=== PATIENT | male | born 1945 | race African-American/Black ===

== ENCOUNTER 2017-05-12 20:20 | Inpatient (IN) | payer MEDICARE, MEDICAID ==
[2017-05-12 20:55] VITALS: BP 144/90
[2017-05-12] MEDS ORDERED: Maalox 30 mL Cup PO PRN (21:08)
[2017-05-12] MEDS ORDERED: Magnesium Hydroxide (MOM) 30 mL UDC PO PRN (21:08)
[2017-05-13 08:04] LABS: CHOLESTEROL 124 mg/dL (<200); TRIGLYCERIDES 49 mg/dL (<150)
[2017-05-13 08:06] LABS: ALB/GLOB RATIO 1.1 (1.0-1.8); ANION GAP 8.4 (7.0-16.0); BILIRUBIN,TOTAL 0.7 mg/dL (0.3-1.0); CALCIUM SERUM 10.3 mg/dL (8.6-10.3); CARBON DIOXIDE 26.1 mEq/L (21.0-31.0); CREATININE - SERUM 1.6 mg/dL (0.7-1.3); POTASSIUM SERUM 3.5 mEq/L (3.5-5.1)
[2017-05-13 08:24] LABS: HEMATOCRIT 32.2 % (39.0-49.0); HEMOGLOBIN 11.1 gm/dL (12.6-17.4); MEAN CELL VOLUME 88.4 fl (80-99); MEAN CORPUSCULAR HEMOGLOBIN 30.4 pg (27.0-31.0); MEAN CORPUSCULAR HGB CONC 34.4 pg (28.0-36.0); PLATELET COUNT 178 Th/cmm (150-400); RED BLOOD COUNT 3.65 Mil/cmm (3.80-5.80); WHITE BLOOD COUNT 5.2 Th/cmm (4.8-10.8)
[2017-05-13] MEDS: Benztropine 1 MG TAB PO SCH ×2 (08:42→16:44)
--- NOTE | 2017-05-13 08:43 | History and Physical ---
History of Present Illness - HPI Chief Complaint: Psychosis HPI: 72 year old male who was transferred from [facility] to [facility] for change of behavior noted by nursing staff at SNF. Patient presents to [facility] with aggressive behavior, increased confusion, and displayed combativeness with refusal to eat. While in the ER the patient routine labwork. Please see transfer records.K+ noted to be 3.4 troponin 0.01. CXR showed mild CHF. Patient has a history of dissecting aneurysm of the aortic arch, hypertension, history of renal failure, schizophrenia Vital Signs: Last Vital Signs Temp 97.1 F 05/13/17 06:54 Pulse 69 05/13/17 06:54 Resp 19 05/13/17 06:54 BP 120/83 05/13/17 06:54 Pulse Ox 99 05/13/17 06:54 Past Medical History Cardiovascular: Report: CAD, CHF, HTN, Other (dissecting aortic aneurysm) Psych: Report: Psychosis, Schizophrenia Family Medical History - Family Member Mother History Unknown: Yes Father History Unknown: Yes Social History Smoke: No Alcohol: None Drugs: None Lives: Alone - Medications Home Medications: Home Medication Medication Instructions Recorded Type Amlodipine Besylate 10 mg PO DAILY 05/12/17 History Benztropine [Cogentin*] 0.5 mg PO BID 05/12/17 History Hydralazine HCl 50 mg PO QID 05/12/17 History Isosorbide Dinitrate 10 mg PO BID 05/12/17 History Metoprolol Tartrate 50 mg PO Q8HR 05/12/17 History - Allergies Allergies/Adverse Reactions: Allergies Allergy/AdvReac Type Severity Reaction Status Date / Time No Known Allergies Allergy Verified 05/12/17 20:55 Review of Systems - Review of Systems Constitutional: Report: No Significant Eyes: Report: No Significant ENT: Report: No Significant Respiratory: Report: No Significant Cardiovascular: Report: No Significant Gastrointestinal: Report: No Significant Genitourinary: Report: No Significant Musculoskeletal: Report: No Significant Skin: Report: No Significant Neurological: Report: No Significant Physical Exam - Physical Exam HEENT: Report: Ears Nose Throat within normal limits, Pharnyx within normal limits Neck: Report: Within normal limits Cardiovascular Systems: Report: +s1/s2 noted, Regular, Rate and Rhythm Respiratory: Report: Breath Sounds are within normal limits, Clear to Auscultation of lung fritz Abdomen: Report: Non-tender to palpation Extremities: Report: Non-tender to palpation. Skin: Report: Color of skin is within normal limits Neuro/Psych: Report: Mood affect is within normal limits, A+Ox3 - Lab Results All Lab Results last 24 hours: Laboratory Last Values Sodium 139 mEq/L (136-145) 05/13/17 07:09 Potassium 3.5 mEq/L (3.5-5.1) 05/13/17 07:09 Chloride 108 mEq/L (98-107) H 05/13/17 07:09 Carbon Dioxide 26.1 mEq/L (21.0-31.0) 05/13/17 07:09 Anion Gap 8.4 (7.0-16.0) 05/13/17 07:09 BUN 32 mg/dL (7-25) H 05/13/17 07:09 Creatinine 1.6 mg/dL (0.7-1.3) H 05/13/17 07:09 Est GFR ( Amer) 55.2 ml/min (>90) 05/13/17 07:09 Est GFR (Non-Af Amer) 45.6 ml/min 05/13/17 07:09 BUN/Creatinine Ratio 20.0 05/13/17 07:09 Glucose 89 mg/dL (70-105) 05/13/17 07:09 Calcium 10.3 mg/dL (8.6-10.3) 05/13/17 07:09 Total Bilirubin 0.7 mg/dL (0.3-1.0) 05/13/17 07:09 AST 18 U/L (13-39) 05/13/17 07:09 ALT 9 U/L (7-52) 05/13/17 07:09 Alkaline Phosphatase 59 U/L (34-104) 05/13/17 07:09 Total Protein 6.1 gm/dL (6.0-8.3) 05/13/17 07:09 Albumin 3.2 gm/dL (4.2-5.5) L 05/13/17 07:09 Globulin 2.9 gm/dL 05/13/17 07:09 Albumin/Globulin Ratio 1.1 (1.0-1.8) 05/13/17 07:09 Triglycerides 49 mg/dL (<150) 05/13/17 07:09 Cholesterol 124 mg/dL (<200) 05/13/17 07:09 LDL Cholesterol Direct 75 mg/dL (75-193) 05/13/17 07:09 HDL Cholesterol 40 mg/dL (23-92) 05/13/17 07:09 Laboratory Results - last 24 hr 05/13/17 05/13/17 07:09 07:09 Sodium 139 Potassium 3.5 Chloride 108 H Carbon Dioxide 26.1 Anion Gap 8.4 BUN 32 H Creatinine 1.6 H Est GFR ( Amer) 55.2 Est GFR (Non-Af Amer) 45.6 BUN/Creatinine Ratio 20.0 Glucose 89 Calcium 10.3 Total Bilirubin 0.7 AST 18 ALT 9 Alkaline Phosphatase 59 Total Protein 6.1 Albumin 3.2 L Globulin 2.9 Albumin/Globulin Ratio 1.1 Triglycerides 49 Cholesterol 124 LDL Cholesterol Direct 75 HDL Cholesterol 40 - Assessment Assessment: [psychosis schizophrenia hypertension renal failure anemia coronary artery disease history of aneurym - Plan Plan: psychosis schizophrenia hypertension renal failure anemia coronary artery disease history of aneurym chf
[2017-05-13 10:14] LABS: BAND NEUTROPHILE 1 % (0-10); EOSINOPHIL 7 % (0-5); NEUTROPHILS 61 % (40-80); PLATELET ESTIMATE ADEQUATE (NORMAL); TOTAL CELLS COUNTED 100
[2017-05-13 10:15] LABS: PLATELET MORPHOLOGY NORMAL (NORMAL)
--- NOTE | 2017-05-13 10:15 | Diagnostic Imaging Report ---
Exam: Portable chest x-ray exam HISTORY: Chest congestion. Findings: Portable upright examination of the chest at 0951 hours reviewed no prior studies available for comparison. The patient significantly rotated. No acute pulmonic infiltrates or effusions are noted, mediastinal structures midline. The costophrenic angles are clear, bony thorax is intact. There is evidence for atelectatic changes or consolidation in the right suprahilar area due to rotation of patient cannot be assessed properly. If clinically indicated CT examination might be helpful There is a question of mild congestion. Follow-up examination is recommended. IMPRESSION: 1. Significant rotation of patient. CT examination of the chest is recommended 2. Mild congestion, follow-up is recommended.
--- NOTE | 2017-05-13 10:27 | Psychosocial Evaluation ---
DATE OF SERVICE: 05/12/2017 IDENTIFYING DATA: The patient is a 72-year-old -Algerian male admitted here on a 5150 after he was transferred from [facility] where he has been initially seen and evaluated. The patient has been placed on a 5150 as a danger to self and being gravely disabled. As per the information, the patient has been out of control, agitated, refusing to eat and thinking everything is bad and has not been making any sense. On that basis, the patient has been evaluated over there and has been placed on 5150. The patient has been transferred over here for acute agitation. Staff are spoken to, the patient is interviewed. The patient is not making any sense at this time. The patient is isolative and withdrawn. Insight and judgment are noted to be very much impaired at this time. The patient has been having difficult time to cope with the stress. PAST PSYCHIATRIC HISTORY: Details are not known. MEDICAL HISTORY: Physical examination is requested to be done by Dr. Carballo. SUBSTANCE ABUSE HISTORY: None. PHYSICAL OR SEXUAL ABUSE HISTORY: None. STRENGTH AND ASSETS: The patient seems to be motivated at this time. MENTAL STATUS EXAMINATION: The patient is a 72-year-old, thin built, superficially cooperative. Eye contact is poor. Mood is noted to be irritable. Affect is constricted. Insight and judgment at this time are noted to be very much impaired. Impulse control seems to be poor. Coping skills are also noted to be poor. The patient has been having difficult time to cope with the stress. The patient is very paranoid and is responding to the internal stimuli, personal hygiene is noted to be very poor. Attention span and concentration are noted to be poor. The patient is not able to recall any of the 3 things that are told to him after 5 minutes. INITIAL ASSESSMENT: AXIS I: Schizophrenia, chronic paranoid type by history. AXIS II: None. AXIS III: As per Dr. Carballo. IMMEDIATE TREATMENT PLAN: The patient is going to be observed on the inpatient unit, provided with supportive psychotherapy. The patient is going to be closely monitored. Once stabilized, the patient is going to be discharged to [facility] to be followed up on an outpatient basis. JOB# [id number]
--- NOTE | 2017-05-14 06:00 | General Progress Note ---
Subjective - Review of Systems Service Date: 05/14/17 Subjective: awake, alert, afebrile. Poor PO intake Objective - Results Result Diagrams: 05/13/17 07:09 05/13/17 07:09 Recent Labs: Laboratory Last Values WBC 5.2 Th/cmm (4.8-10.8) 05/13/17 07:09 RBC 3.65 Mil/cmm (3.80-5.80) L 05/13/17 07:09 Hgb 11.1 gm/dL (12.6-17.4) L 05/13/17 07:09 Hct 32.2 % (39.0-49.0) L 05/13/17 07:09 MCV 88.4 fl (80-99) 05/13/17 07:09 MCH 30.4 pg (27.0-31.0) 05/13/17 07:09 MCHC Differential 34.4 pg (28.0-36.0) 05/13/17 07:09 RDW 14.0 % (11.5-20.0) 05/13/17 07:09 Plt Count 178 Th/cmm (150-400) 05/13/17 07:09 MPV 8.0 fl 05/13/17 07:09 Band Neutrophils % 1 % (0-10) 05/13/17 07:09 Neutrophils (Manual) 61 % (40-80) 05/13/17 07:09 Lymphocytes 22 % (20-50) 05/13/17 07:09 Monocytes 9 % (2-10) 05/13/17 07:09 Eosinophils 7 % (0-5) H 05/13/17 07:09 Platelet Estimate ADEQUATE (NORMAL) 05/13/17 07:09 Platelet Morphology NORMAL (NORMAL) 05/13/17 07:09 RBC Morph Micro Appear NORMAL (NORMAL) 05/13/17 07:09 Sodium 139 mEq/L (136-145) 05/13/17 07:09 Potassium 3.5 mEq/L (3.5-5.1) 05/13/17 07:09 Chloride 108 mEq/L (98-107) H 05/13/17 07:09 Carbon Dioxide 26.1 mEq/L (21.0-31.0) 05/13/17 07:09 Anion Gap 8.4 (7.0-16.0) 05/13/17 07:09 BUN 32 mg/dL (7-25) H 05/13/17 07:09 Creatinine 1.6 mg/dL (0.7-1.3) H 05/13/17 07:09 Est GFR ( Amer) 55.2 ml/min (>90) 05/13/17 07:09 Est GFR (Non-Af Amer) 45.6 ml/min 05/13/17 07:09 BUN/Creatinine Ratio 20.0 05/13/17 07:09 Glucose 89 mg/dL (70-105) 05/13/17 07:09 Calcium 10.3 mg/dL (8.6-10.3) 05/13/17 07:09 Total Bilirubin 0.7 mg/dL (0.3-1.0) 05/13/17 07:09 AST 18 U/L (13-39) 05/13/17 07:09 ALT 9 U/L (7-52) 05/13/17 07:09 Alkaline Phosphatase 59 U/L (34-104) 05/13/17 07:09 Total Protein 6.1 gm/dL (6.0-8.3) 05/13/17 07:09 Albumin 3.2 gm/dL (4.2-5.5) L 05/13/17 07:09 Globulin 2.9 gm/dL 05/13/17 07:09 Albumin/Globulin Ratio 1.1 (1.0-1.8) 05/13/17 07:09 Triglycerides 49 mg/dL (<150) 05/13/17 07:09 Cholesterol 124 mg/dL (<200) 05/13/17 07:09 LDL Cholesterol Direct 75 mg/dL (75-193) 05/13/17 07:09 HDL Cholesterol 40 mg/dL (23-92) 05/13/17 07:09 TSH 1.07 uIU/ml (0.34-5.60) 05/13/17 07:09 RPR NONREACTIVE (NONREACTIVE) 05/13/17 07:09 - Physical Exam Vitals and I&O: Vital Signs Temp 97.2 F 05/13/17 22:10 Pulse 77 05/13/17 22:10 Resp 18 05/13/17 22:10 BP 111/75 05/13/17 22:10 Pulse Ox 97 05/13/17 22:10 Intake & Output 05/13/17 05/13/17 05/14/17 06:59 18:59 06:59 Intake Total 800 Balance 800 Weight (lbs) 59.874 kg Intake: Oral 800 Other: # Voids 2 4 2 # Bowel Movements 1 Active Medications: Current Medications Acetaminophen (Tylenol) 650 mg PO Q6H PRN PRN Reason: Mild Pain/Headache/T above 101 Stop: 07/11/17 21:07 Al Hydrox/Mg Hydrox/Simethicone (Maalox) 30 ml PO Q6H PRN PRN Reason: Dyspepsia Stop: 07/11/17 21:07 Amlodipine Besylate (Norvasc) 10 mg PO DAILY [facility] Stop: 07/12/17 08:59 Last Admin: 05/13/17 08:44 Dose: 10 mg Benztropine Mesylate (Cogentin) 0.5 mg PO BID [facility] Stop: 07/12/17 08:59 Last Admin: 05/13/17 16:44 Dose: 0.5 mg Hydralazine HCl (Apresoline) 50 mg PO QID [facility] Stop: 07/12/17 08:59 Last Admin: 05/13/17 21:16 Dose: 50 mg Isosorbide Dinitrate (Isordil) 10 mg PO BID [facility] Stop: 07/12/17 08:59 Last Admin: 05/13/17 16:45 Dose: 10 mg Lorazepam (Ativan) 0.5 mg PO Q6H PRN; Protocol PRN Reason: Anxiety/Agitation Stop: 07/11/17 21:07 Magnesium Hydroxide (Milk Of Magnesia) 30 ml PO HS PRN PRN Reason: Constipation Stop: 07/11/17 21:07 Metoprolol Tartrate (Lopressor) 50 mg PO Q8HR [facility] Stop: 07/12/17 04:59 Last Admin: 05/13/17 21:16 Dose: 50 mg Zolpidem Tartrate (Ambien) 5 mg PO HS PRN PRN Reason: Insomnia Stop: 07/11/17 21:07 General: Alert, No acute distress HEENT: Atraumatic, PERRLA, EOMI Neck: Supple Cardiovascular: Regular rate, Normal S1, Normal S2 Abdomen: Bowel sounds, Soft Extremities: no Clubbing, no Cyanosis Assessment/Plan - Assessment Assessment: [psychosis schizophrenia hypertension renal failure anemia coronary artery disease history of aneurym renal insufficiency - Plan Plan: psychosis ... continue current treatment schizophrenia hypertension ... continue current BP meds acute vs chronic renal insufficiency...cr 1.6. encourage more PO intake. Will repeat labwork in a few days. anemia ... stable coronary artery disease history of aneurym chf
[2017-05-14] MEDS: Benztropine 1 MG TAB PO SCH (09:03)
--- NOTE | 2017-05-14 15:52 | Progress Notes ---
DATE: 05/14/2017 PSYCHIATRIC PROGRESS NOTE SUBJECTIVE: Staff was spoken to. The patient is interviewed. Mood is noted to be irritable. Affect is constricted. Insight and judgment are noted to be still impaired. Impulse control seems to be poor. Coping skills are also noted to be poor. The patient has been screaming and yelling. The patient is responding to internal stimuli. The patient at this time has been having difficult time. The patient is stating that he is very much worried about his safety and he is afraid that something bad is going to be happening here. The patient has no insight into his illness. ASSESSMENT: The patient is still psychotic. PLAN: To add the patient with low dose of the Seroquel and follow the patient with supportive therapy and has no place to return to possibly needed placement, but once medically stabilized, the patient is going to be looked into placement options. At this time, the patient is very agitated and is not getting out of his bed. Plan to start the patient on low dose of Seroquel and follow the patient with the supportive therapy. JOB# [id number]
--- NOTE | 2017-05-14 21:54 | Admit Criteria Form ---
Admit Criteria Forms - Admit Criteria Diagnosis: PSYCHIATRIC DISORDERS (Place 'X' for any and all applicable criteria): Ongoing inpatient care may be needed for 1 or more of the following(1)(2)(3)(4)( 6)(7)(8): [ ]I. Danger to self or others not manageable at lower level of care. [ ]II. Grave disability (eg, inability to perform self care necessary at lower level of care) [ ]III. Agitation or inappropriate behavior interfering with care for primary condition (eg, attempting to discontinue lines or drains prematurely, unable to cooperate with respiratory care) [X ]IV. Severe disability or disorder indicated by ALL of the following: [X ]a) Severe behavioral health disorder-related symptoms or condition indicated by 1 or more of the following: [ ]i) Severe problem with cognition, memory, judgment, or impulse control [X ]ii) Severe clinical manifestations (eg, hallucinations , delusions, other acute psychotic symptoms, silas, extreme agitation or anxiety) [X ]b) Patient management at lower level of care is not feasible until acute intervention or modification is initiated. Extended stay beyond goal length of stay for the primary condition may be needed until ALLof the following are present(1)(2)(3)(4)(7)28)(23): [ ]a) Danger to self or others is absent or manageable at lower level of care [ ]b) Behavior crisis management, including physical or chemical restraints, is required and is not available at a lower level of care. [ ]c) Behavioral symptoms (e.g., agitation, somnolence, inappropriate behavior) are present, and are not manageable at a lower level of care. [ ]d) Patient cannot understand follow-up treatment and crisis plan. [ ]e) Provider and supports are sufficiently available at lower level of care. [ ]f) Patient can participate (e.g., verify absence of plan for harm) and is in needed of monitoring. The original [facility] content created by [facility] has been revised. The portions of the content which have been revised are identified through the use of italic text or in bold, and [facility] has neither reviewed nor approved the modified material. All other unmodified content is copyright [facility]. Please see references footnoted in the original [facility] edition 2017 Admit Criteria Met?: Yes
--- NOTE | 2017-05-15 07:03 | General Progress Note ---
Subjective - Review of Systems Service Date: 05/15/17 Subjective: awake, alert, afebrile. Poor PO intake Objective - Results Result Diagrams: 05/13/17 07:09 05/13/17 07:09 Recent Labs: Laboratory Last Values WBC 5.2 Th/cmm (4.8-10.8) 05/13/17 07:09 RBC 3.65 Mil/cmm (3.80-5.80) L 05/13/17 07:09 Hgb 11.1 gm/dL (12.6-17.4) L 05/13/17 07:09 Hct 32.2 % (39.0-49.0) L 05/13/17 07:09 MCV 88.4 fl (80-99) 05/13/17 07:09 MCH 30.4 pg (27.0-31.0) 05/13/17 07:09 MCHC Differential 34.4 pg (28.0-36.0) 05/13/17 07:09 RDW 14.0 % (11.5-20.0) 05/13/17 07:09 Plt Count 178 Th/cmm (150-400) 05/13/17 07:09 MPV 8.0 fl 05/13/17 07:09 Band Neutrophils % 1 % (0-10) 05/13/17 07:09 Neutrophils (Manual) 61 % (40-80) 05/13/17 07:09 Lymphocytes 22 % (20-50) 05/13/17 07:09 Monocytes 9 % (2-10) 05/13/17 07:09 Eosinophils 7 % (0-5) H 05/13/17 07:09 Platelet Estimate ADEQUATE (NORMAL) 05/13/17 07:09 Platelet Morphology NORMAL (NORMAL) 05/13/17 07:09 RBC Morph Micro Appear NORMAL (NORMAL) 05/13/17 07:09 Sodium 139 mEq/L (136-145) 05/13/17 07:09 Potassium 3.5 mEq/L (3.5-5.1) 05/13/17 07:09 Chloride 108 mEq/L (98-107) H 05/13/17 07:09 Carbon Dioxide 26.1 mEq/L (21.0-31.0) 05/13/17 07:09 Anion Gap 8.4 (7.0-16.0) 05/13/17 07:09 BUN 32 mg/dL (7-25) H 05/13/17 07:09 Creatinine 1.6 mg/dL (0.7-1.3) H 05/13/17 07:09 Est GFR ( Amer) 55.2 ml/min (>90) 05/13/17 07:09 Est GFR (Non-Af Amer) 45.6 ml/min 05/13/17 07:09 BUN/Creatinine Ratio 20.0 05/13/17 07:09 Glucose 89 mg/dL (70-105) 05/13/17 07:09 Calcium 10.3 mg/dL (8.6-10.3) 05/13/17 07:09 Total Bilirubin 0.7 mg/dL (0.3-1.0) 05/13/17 07:09 AST 18 U/L (13-39) 05/13/17 07:09 ALT 9 U/L (7-52) 05/13/17 07:09 Alkaline Phosphatase 59 U/L (34-104) 05/13/17 07:09 Total Protein 6.1 gm/dL (6.0-8.3) 05/13/17 07:09 Albumin 3.2 gm/dL (4.2-5.5) L 05/13/17 07:09 Globulin 2.9 gm/dL 05/13/17 07:09 Albumin/Globulin Ratio 1.1 (1.0-1.8) 05/13/17 07:09 Triglycerides 49 mg/dL (<150) 05/13/17 07:09 Cholesterol 124 mg/dL (<200) 05/13/17 07:09 LDL Cholesterol Direct 75 mg/dL (75-193) 05/13/17 07:09 HDL Cholesterol 40 mg/dL (23-92) 05/13/17 07:09 TSH 1.07 uIU/ml (0.34-5.60) 05/13/17 07:09 RPR NONREACTIVE (NONREACTIVE) 05/13/17 07:09 - Physical Exam Vitals and I&O: Vital Signs Temp 98.0 F 05/14/17 20:00 Pulse 83 05/15/17 05:04 Resp 19 05/14/17 20:00 BP 137/99 05/15/17 05:04 Pulse Ox 95 05/14/17 20:00 Intake & Output 05/14/17 05/15/17 05/15/17 18:59 06:59 18:59 Intake Total 800 400 Balance 800 400 Intake: Oral 800 400 Other: # Voids 2 2 Active Medications: Current Medications Acetaminophen (Tylenol) 650 mg PO Q6H PRN PRN Reason: Mild Pain/Headache/T above 101 Stop: 07/11/17 21:07 Al Hydrox/Mg Hydrox/Simethicone (Maalox) 30 ml PO Q6H PRN PRN Reason: Dyspepsia Stop: 07/11/17 21:07 Amlodipine Besylate (Norvasc) 10 mg PO DAILY [facility] Stop: 07/12/17 08:59 Last Admin: 05/14/17 09:04 Dose: 10 mg Hydralazine HCl (Apresoline) 50 mg PO QID [facility] Stop: 07/12/17 08:59 Last Admin: 05/14/17 20:53 Dose: 50 mg Isosorbide Dinitrate (Isordil) 10 mg PO BID [facility] Stop: 07/12/17 08:59 Last Admin: 05/14/17 16:32 Dose: 10 mg Lorazepam (Ativan) 0.5 mg PO Q6H PRN; Protocol PRN Reason: Anxiety/Agitation Stop: 07/11/17 21:07 Magnesium Hydroxide (Milk Of Magnesia) 30 ml PO HS PRN PRN Reason: Constipation Stop: 07/11/17 21:07 Metoprolol Tartrate (Lopressor) 50 mg PO Q8HR [facility] Stop: 07/12/17 04:59 Last Admin: 05/15/17 05:04 Dose: 50 mg Quetiapine Fumarate (Seroquel) 12.5 mg PO HS [facility] PRN Reason: Protocol Stop: 07/13/17 20:59 Last Admin: 05/14/17 20:54 Dose: 12.5 mg Zolpidem Tartrate (Ambien) 5 mg PO HS PRN PRN Reason: Insomnia Stop: 07/11/17 21:07 General: Alert, No acute distress HEENT: Atraumatic, PERRLA, EOMI Neck: Supple Cardiovascular: Regular rate, Normal S1, Normal S2 Abdomen: Bowel sounds, Soft Extremities: no Clubbing, no Cyanosis Assessment/Plan - Assessment Assessment: [psychosis schizophrenia hypertension renal failure anemia coronary artery disease history of aneurym renal insufficiency - Plan Plan: psychosis ... continue current treatment schizophrenia hypertension ... continue current BP meds acute vs chronic renal insufficiency...cr 1.6. encourage more PO intake. Will repeat labwork in a few days. anemia ... stable coronary artery disease history of aneurym chf
--- NOTE | 2017-05-15 21:14 | Progress Notes ---
DATE: 05/15/2017 PSYCHIATRIC PROGRESS NOTE SUBJECTIVE: Staff was spoken to. The patient is interviewed. Mood is noted to be irritable. Affect is constricted. Coping skills are noted to be still poor. Sleep and appetite also noted to be poor. The patient has been having difficult time to cope with the stress. The patient is isolative and withdrawn, continues to be very paranoid. No side effects to medications are noted. The patient is still responding to the internal stimuli. ASSESSMENT: The patient is still psychotic and impulsive. PLAN: Place the patient on 25 mg of Seroquel. I encouraged the patient to verbalize the concerns rather than to act out. In view of the cardiac problems, we have been titrating the medications very slowly. JOB# [id number]
--- NOTE | 2017-05-16 08:47 | General Progress Note ---
Subjective - Review of Systems Service Date: 05/16/17 Subjective: awake, alert, afebrile. Poor PO intake. Will continue to encourage increase PO intake. Objective - Results Result Diagrams: 05/13/17 07:09 05/13/17 07:09 Recent Labs: Laboratory Last Values WBC 5.2 Th/cmm (4.8-10.8) 05/13/17 07:09 RBC 3.65 Mil/cmm (3.80-5.80) L 05/13/17 07:09 Hgb 11.1 gm/dL (12.6-17.4) L 05/13/17 07:09 Hct 32.2 % (39.0-49.0) L 05/13/17 07:09 MCV 88.4 fl (80-99) 05/13/17 07:09 MCH 30.4 pg (27.0-31.0) 05/13/17 07:09 MCHC Differential 34.4 pg (28.0-36.0) 05/13/17 07:09 RDW 14.0 % (11.5-20.0) 05/13/17 07:09 Plt Count 178 Th/cmm (150-400) 05/13/17 07:09 MPV 8.0 fl 05/13/17 07:09 Band Neutrophils % 1 % (0-10) 05/13/17 07:09 Neutrophils (Manual) 61 % (40-80) 05/13/17 07:09 Lymphocytes 22 % (20-50) 05/13/17 07:09 Monocytes 9 % (2-10) 05/13/17 07:09 Eosinophils 7 % (0-5) H 05/13/17 07:09 Platelet Estimate ADEQUATE (NORMAL) 05/13/17 07:09 Platelet Morphology NORMAL (NORMAL) 05/13/17 07:09 RBC Morph Micro Appear NORMAL (NORMAL) 05/13/17 07:09 Sodium 139 mEq/L (136-145) 05/13/17 07:09 Potassium 3.5 mEq/L (3.5-5.1) 05/13/17 07:09 Chloride 108 mEq/L (98-107) H 05/13/17 07:09 Carbon Dioxide 26.1 mEq/L (21.0-31.0) 05/13/17 07:09 Anion Gap 8.4 (7.0-16.0) 05/13/17 07:09 BUN 32 mg/dL (7-25) H 05/13/17 07:09 Creatinine 1.6 mg/dL (0.7-1.3) H 05/13/17 07:09 Est GFR ( Amer) 55.2 ml/min (>90) 05/13/17 07:09 Est GFR (Non-Af Amer) 45.6 ml/min 05/13/17 07:09 BUN/Creatinine Ratio 20.0 05/13/17 07:09 Glucose 89 mg/dL (70-105) 05/13/17 07:09 Calcium 10.3 mg/dL (8.6-10.3) 05/13/17 07:09 Total Bilirubin 0.7 mg/dL (0.3-1.0) 05/13/17 07:09 AST 18 U/L (13-39) 05/13/17 07:09 ALT 9 U/L (7-52) 05/13/17 07:09 Alkaline Phosphatase 59 U/L (34-104) 05/13/17 07:09 Total Protein 6.1 gm/dL (6.0-8.3) 05/13/17 07:09 Albumin 3.2 gm/dL (4.2-5.5) L 05/13/17 07:09 Globulin 2.9 gm/dL 05/13/17 07:09 Albumin/Globulin Ratio 1.1 (1.0-1.8) 05/13/17 07:09 Triglycerides 49 mg/dL (<150) 05/13/17 07:09 Cholesterol 124 mg/dL (<200) 05/13/17 07:09 LDL Cholesterol Direct 75 mg/dL (75-193) 05/13/17 07:09 HDL Cholesterol 40 mg/dL (23-92) 05/13/17 07:09 TSH 1.07 uIU/ml (0.34-5.60) 05/13/17 07:09 RPR NONREACTIVE (NONREACTIVE) 05/13/17 07:09 - Physical Exam Vitals and I&O: Vital Signs Temp 97.5 F 05/16/17 06:39 Pulse 69 05/16/17 06:39 Resp 18 05/16/17 06:39 BP 146/95 05/16/17 06:39 Pulse Ox 98 05/16/17 06:39 Intake & Output 05/15/17 05/16/17 05/16/17 18:59 06:59 18:59 Intake Total 1000 Balance 1000 Intake: Oral 1000 Other: # Voids 4 # Bowel Movements 1 Active Medications: Current Medications Acetaminophen (Tylenol) 650 mg PO Q6H PRN PRN Reason: Mild Pain/Headache/T above 101 Stop: 07/11/17 21:07 Al Hydrox/Mg Hydrox/Simethicone (Maalox) 30 ml PO Q6H PRN PRN Reason: Dyspepsia Stop: 07/11/17 21:07 Amlodipine Besylate (Norvasc) 10 mg PO DAILY [facility] Stop: 07/12/17 08:59 Last Admin: 05/15/17 11:52 Dose: Not Given Hydralazine HCl (Apresoline) 50 mg PO QID [facility] Stop: 07/12/17 08:59 Last Admin: 05/15/17 20:41 Dose: 50 mg Isosorbide Dinitrate (Isordil) 10 mg PO BID [facility] Stop: 07/12/17 08:59 Last Admin: 05/15/17 16:39 Dose: 10 mg Lorazepam (Ativan) 0.5 mg PO Q6H PRN; Protocol PRN Reason: Anxiety/Agitation Stop: 07/11/17 21:07 Magnesium Hydroxide (Milk Of Magnesia) 30 ml PO HS PRN PRN Reason: Constipation Stop: 07/11/17 21:07 Metoprolol Tartrate (Lopressor) 50 mg PO Q8HR [facility] Stop: 07/12/17 04:59 Last Admin: 05/16/17 05:58 Dose: 50 mg Quetiapine Fumarate (Seroquel) 25 mg PO HS [facility] PRN Reason: Protocol Stop: 07/14/17 09:23 Last Admin: 05/15/17 20:43 Dose: 25 mg Zolpidem Tartrate (Ambien) 5 mg PO HS PRN PRN Reason: Insomnia Stop: 07/11/17 21:07 General: Alert, No acute distress HEENT: Atraumatic, PERRLA, EOMI Neck: Supple Cardiovascular: Regular rate, Normal S1, Normal S2 Abdomen: Bowel sounds, Soft Extremities: no Clubbing, no Cyanosis Assessment/Plan - Assessment Assessment: [psychosis schizophrenia hypertension renal failure anemia coronary artery disease history of aneurym renal insufficiency - Plan Plan: psychosis ... continue current treatment schizophrenia hypertension ... elevated this morning ... will add clonidine 0.1mg PRN SBP above 150. acute vs chronic renal insufficiency...cr 1.6. encourage more PO intake. Will repeat labwork in a few days. anemia ... stable coronary artery disease history of aneurym chf
--- NOTE | 2017-05-17 02:28 | Progress Notes ---
DATE: 05/16/2017 PSYCHIATRIC PROGRESS NOTE TIME PATIENT SEEN: SUBJECTIVE: Staff was spoken to. The patient is interviewed. Mood is noted to be irritable. Affect is constricted. The patient is very confused. The patient has no place to return to. Continues to be very paranoid and tends to confabulate. No side effects to the medications are noted. The patient is currently on 25 mg of Seroquel and has been able to tolerate the medication. ASSESSMENT: The patient is still psychotic and impulsive. PLAN: To continue the patient with the supportive therapy. I encouraged the patient to verbalize the concerns rather than to act out. JOB# [id number]
[2017-05-17 07:25] LABS: ANION GAP 5.8 (7.0-16.0); BUN - UREA NITROGEN 20 mg/dL (7-25); BUN/CREATININE RATIO 16.7; CALCIUM SERUM 10.8 mg/dL (8.6-10.3); CARBON DIOXIDE 31.8 mEq/L (21.0-31.0); CHLORIDE 107 mEq/L (98-107); CREATININE - SERUM 1.2 mg/dL (0.7-1.3); GLUCOSE 90 mg/dL (70-105); POTASSIUM SERUM 3.6 mEq/L (3.5-5.1); SODIUM SERUM 141 mEq/L (136-145)
--- NOTE | 2017-05-17 08:28 | General Progress Note ---
Subjective - Review of Systems Service Date: 05/17/17 Subjective: awake, alert, afebrile. no new changes. Objective - Results Result Diagrams: 05/13/17 07:09 05/17/17 06:25 Recent Labs: Laboratory Last Values WBC 5.2 Th/cmm (4.8-10.8) 05/13/17 07:09 RBC 3.65 Mil/cmm (3.80-5.80) L 05/13/17 07:09 Hgb 11.1 gm/dL (12.6-17.4) L 05/13/17 07:09 Hct 32.2 % (39.0-49.0) L 05/13/17 07:09 MCV 88.4 fl (80-99) 05/13/17 07:09 MCH 30.4 pg (27.0-31.0) 05/13/17 07:09 MCHC Differential 34.4 pg (28.0-36.0) 05/13/17 07:09 RDW 14.0 % (11.5-20.0) 05/13/17 07:09 Plt Count 178 Th/cmm (150-400) 05/13/17 07:09 MPV 8.0 fl 05/13/17 07:09 Band Neutrophils % 1 % (0-10) 05/13/17 07:09 Neutrophils (Manual) 61 % (40-80) 05/13/17 07:09 Lymphocytes 22 % (20-50) 05/13/17 07:09 Monocytes 9 % (2-10) 05/13/17 07:09 Eosinophils 7 % (0-5) H 05/13/17 07:09 Platelet Estimate ADEQUATE (NORMAL) 05/13/17 07:09 Platelet Morphology NORMAL (NORMAL) 05/13/17 07:09 RBC Morph Micro Appear NORMAL (NORMAL) 05/13/17 07:09 Sodium 141 mEq/L (136-145) 05/17/17 06:25 Potassium 3.6 mEq/L (3.5-5.1) 05/17/17 06:25 Chloride 107 mEq/L (98-107) 05/17/17 06:25 Carbon Dioxide 31.8 mEq/L (21.0-31.0) H 05/17/17 06:25 Anion Gap 5.8 (7.0-16.0) L 05/17/17 06:25 BUN 20 mg/dL (7-25) 05/17/17 06:25 Creatinine 1.2 mg/dL (0.7-1.3) 05/17/17 06:25 Est GFR ( Amer) > 60.0 ml/min (>90) 05/17/17 06:25 Est GFR (Non-Af Amer) > 60.0 ml/min 05/17/17 06:25 BUN/Creatinine Ratio 16.7 05/17/17 06:25 Glucose 90 mg/dL (70-105) 05/17/17 06:25 Calcium 10.8 mg/dL (8.6-10.3) H 05/17/17 06:25 Total Bilirubin 0.7 mg/dL (0.3-1.0) 05/13/17 07:09 AST 18 U/L (13-39) 05/13/17 07:09 ALT 9 U/L (7-52) 05/13/17 07:09 Alkaline Phosphatase 59 U/L (34-104) 05/13/17 07:09 Total Protein 6.1 gm/dL (6.0-8.3) 05/13/17 07:09 Albumin 3.2 gm/dL (4.2-5.5) L 05/13/17 07:09 Globulin 2.9 gm/dL 05/13/17 07:09 Albumin/Globulin Ratio 1.1 (1.0-1.8) 05/13/17 07:09 Triglycerides 49 mg/dL (<150) 05/13/17 07:09 Cholesterol 124 mg/dL (<200) 05/13/17 07:09 LDL Cholesterol Direct 75 mg/dL (75-193) 05/13/17 07:09 HDL Cholesterol 40 mg/dL (23-92) 05/13/17 07:09 TSH 1.07 uIU/ml (0.34-5.60) 05/13/17 07:09 RPR NONREACTIVE (NONREACTIVE) 05/13/17 07:09 - Physical Exam Vitals and I&O: Vital Signs Temp 98.7 F 05/17/17 06:46 Pulse 67 05/17/17 06:46 Resp 18 05/17/17 06:46 BP 137/97 05/17/17 06:46 Pulse Ox 96 05/17/17 06:46 Intake & Output 05/16/17 05/17/17 05/17/17 18:59 06:59 18:59 Intake Total 1800 240 Balance 1800 240 Intake: Oral 1800 240 Other: # Voids 4 3 # Bowel Movements 1 0 Active Medications: Current Medications Acetaminophen (Tylenol) 650 mg PO Q6H PRN PRN Reason: Mild Pain/Headache/T above 101 Stop: 07/11/17 21:07 Al Hydrox/Mg Hydrox/Simethicone (Maalox) 30 ml PO Q6H PRN PRN Reason: Dyspepsia Stop: 07/11/17 21:07 Amlodipine Besylate (Norvasc) 10 mg PO DAILY [facility] Stop: 07/12/17 08:59 Last Admin: 05/16/17 09:20 Dose: 10 mg Hydralazine HCl (Apresoline) 50 mg PO QID [facility] Stop: 07/12/17 08:59 Last Admin: 05/16/17 20:46 Dose: 50 mg Isosorbide Dinitrate (Isordil) 10 mg PO BID [facility] Stop: 07/12/17 08:59 Last Admin: 05/16/17 09:21 Dose: 10 mg Lorazepam (Ativan) 0.5 mg PO Q6H PRN; Protocol PRN Reason: Anxiety/Agitation Stop: 07/11/17 21:07 Magnesium Hydroxide (Milk Of Magnesia) 30 ml PO HS PRN PRN Reason: Constipation Stop: 07/11/17 21:07 Metoprolol Tartrate (Lopressor) 50 mg PO Q8HR [facility] Stop: 07/12/17 04:59 Last Admin: 05/17/17 06:06 Dose: 50 mg Quetiapine Fumarate (Seroquel) 25 mg PO HS [facility] PRN Reason: Protocol Stop: 07/14/17 09:23 Last Admin: 05/16/17 20:46 Dose: 25 mg Zolpidem Tartrate (Ambien) 5 mg PO HS PRN PRN Reason: Insomnia Stop: 07/11/17 21:07 General: Alert, No acute distress HEENT: Atraumatic, PERRLA, EOMI Neck: Supple Cardiovascular: Regular rate, Normal S1, Normal S2 Abdomen: Bowel sounds, Soft Extremities: no Clubbing, no Cyanosis Assessment/Plan - Problem List Patient Problems: All Active Problems Anemia (Acute) D64.9 Chronic renal failure (Acute) Coronary artery disease (Acute) I25.10 Hypertension (Acute) I10 Psychosis (Acute) F29 Schizophrenia (Acute) F20.9 - Assessment Assessment: [psychosis schizophrenia hypertension renal failure anemia coronary artery disease history of aneurym renal insufficiency - Plan Plan: psychosis ... continue current treatment schizophrenia hypertension ... elevated this morning ... will add clonidine 0.1mg PRN SBP above 150. acute vs chronic renal insufficiency... Cr 1.2....now normal anemia ... stable coronary artery disease history of aneurym chf
--- NOTE | 2017-05-17 14:39 | Progress Notes ---
DATE: 05/17/2017 PSYCHIATRIC PROGRESS NOTE SUBJECTIVE: Staff was spoken to. The patient is interviewed. Mood is noted to be irritable. Affect is constricted. The patient's insight and judgment are noted to be still impaired. The patient is currently on Seroquel 25 mg and is able to tolerate the medications. No side effects of medication. The patient, however, still continues to be paranoid and is responding to internal stimuli, but no command hallucinations are reported at this time. ASSESSMENT: The patient is still psychotic. PLAN: To continue the patient with supportive therapy and follow. JOB# [id number]
--- NOTE | 2017-05-18 08:17 | General Progress Note ---
Subjective - Review of Systems Service Date: 05/18/17 Subjective: awake, alert, afebrile. no new changes. Objective - Results Result Diagrams: 05/13/17 07:09 05/17/17 06:25 Recent Labs: Laboratory Last Values WBC 5.2 Th/cmm (4.8-10.8) 05/13/17 07:09 RBC 3.65 Mil/cmm (3.80-5.80) L 05/13/17 07:09 Hgb 11.1 gm/dL (12.6-17.4) L 05/13/17 07:09 Hct 32.2 % (39.0-49.0) L 05/13/17 07:09 MCV 88.4 fl (80-99) 05/13/17 07:09 MCH 30.4 pg (27.0-31.0) 05/13/17 07:09 MCHC Differential 34.4 pg (28.0-36.0) 05/13/17 07:09 RDW 14.0 % (11.5-20.0) 05/13/17 07:09 Plt Count 178 Th/cmm (150-400) 05/13/17 07:09 MPV 8.0 fl 05/13/17 07:09 Band Neutrophils % 1 % (0-10) 05/13/17 07:09 Neutrophils (Manual) 61 % (40-80) 05/13/17 07:09 Lymphocytes 22 % (20-50) 05/13/17 07:09 Monocytes 9 % (2-10) 05/13/17 07:09 Eosinophils 7 % (0-5) H 05/13/17 07:09 Platelet Estimate ADEQUATE (NORMAL) 05/13/17 07:09 Platelet Morphology NORMAL (NORMAL) 05/13/17 07:09 RBC Morph Micro Appear NORMAL (NORMAL) 05/13/17 07:09 Sodium 141 mEq/L (136-145) 05/17/17 06:25 Potassium 3.6 mEq/L (3.5-5.1) 05/17/17 06:25 Chloride 107 mEq/L (98-107) 05/17/17 06:25 Carbon Dioxide 31.8 mEq/L (21.0-31.0) H 05/17/17 06:25 Anion Gap 5.8 (7.0-16.0) L 05/17/17 06:25 BUN 20 mg/dL (7-25) 05/17/17 06:25 Creatinine 1.2 mg/dL (0.7-1.3) 05/17/17 06:25 Est GFR ( Amer) > 60.0 ml/min (>90) 05/17/17 06:25 Est GFR (Non-Af Amer) > 60.0 ml/min 05/17/17 06:25 BUN/Creatinine Ratio 16.7 05/17/17 06:25 Glucose 90 mg/dL (70-105) 05/17/17 06:25 Calcium 10.8 mg/dL (8.6-10.3) H 05/17/17 06:25 Total Bilirubin 0.7 mg/dL (0.3-1.0) 05/13/17 07:09 AST 18 U/L (13-39) 05/13/17 07:09 ALT 9 U/L (7-52) 05/13/17 07:09 Alkaline Phosphatase 59 U/L (34-104) 05/13/17 07:09 Total Protein 6.1 gm/dL (6.0-8.3) 05/13/17 07:09 Albumin 3.2 gm/dL (4.2-5.5) L 05/13/17 07:09 Globulin 2.9 gm/dL 05/13/17 07:09 Albumin/Globulin Ratio 1.1 (1.0-1.8) 05/13/17 07:09 Triglycerides 49 mg/dL (<150) 05/13/17 07:09 Cholesterol 124 mg/dL (<200) 05/13/17 07:09 LDL Cholesterol Direct 75 mg/dL (75-193) 05/13/17 07:09 HDL Cholesterol 40 mg/dL (23-92) 05/13/17 07:09 TSH 1.07 uIU/ml (0.34-5.60) 05/13/17 07:09 RPR NONREACTIVE (NONREACTIVE) 05/13/17 07:09 - Physical Exam Vitals and I&O: Vital Signs Temp 97.9 F 05/18/17 05:28 Pulse 77 05/18/17 06:02 Resp 19 05/18/17 05:28 BP 154/105 05/18/17 06:02 Pulse Ox 94 05/18/17 05:28 Intake & Output 05/17/17 05/18/17 05/18/17 18:59 06:59 18:59 Intake Total 2400 Balance 2400 Intake: Oral 2400 Other: # Voids 4 1 # Bowel Movements 0 0 Active Medications: Current Medications Acetaminophen (Tylenol) 650 mg PO Q6H PRN PRN Reason: Mild Pain/Headache/T above 101 Stop: 07/11/17 21:07 Al Hydrox/Mg Hydrox/Simethicone (Maalox) 30 ml PO Q6H PRN PRN Reason: Dyspepsia Stop: 07/11/17 21:07 Amlodipine Besylate (Norvasc) 10 mg PO DAILY [facility] Stop: 07/12/17 08:59 Last Admin: 05/17/17 08:28 Dose: 10 mg Hydralazine HCl (Apresoline) 50 mg PO QID [facility] Stop: 07/12/17 08:59 Last Admin: 05/17/17 21:00 Dose: 50 mg Isosorbide Dinitrate (Isordil) 10 mg PO BID [facility] Stop: 07/12/17 08:59 Last Admin: 05/17/17 17:57 Dose: Not Given Lorazepam (Ativan) 0.5 mg PO Q6H PRN; Protocol PRN Reason: Anxiety/Agitation Stop: 07/11/17 21:07 Magnesium Hydroxide (Milk Of Magnesia) 30 ml PO HS PRN PRN Reason: Constipation Stop: 07/11/17 21:07 Metoprolol Tartrate (Lopressor) 50 mg PO Q8HR [facility] Stop: 07/12/17 04:59 Last Admin: 05/18/17 06:02 Dose: 50 mg Quetiapine Fumarate (Seroquel) 25 mg PO HS [facility] PRN Reason: Protocol Stop: 07/14/17 09:23 Last Admin: 05/17/17 21:01 Dose: 25 mg Zolpidem Tartrate (Ambien) 5 mg PO HS PRN PRN Reason: Insomnia Stop: 07/11/17 21:07 General: Alert, No acute distress HEENT: Atraumatic, PERRLA, EOMI Neck: Supple Cardiovascular: Regular rate, Normal S1, Normal S2 Abdomen: Bowel sounds, Soft Extremities: no Clubbing, no Cyanosis Assessment/Plan - Problem List Patient Problems: All Active Problems Anemia (Acute) D64.9 Chronic renal failure (Acute) Coronary artery disease (Acute) I25.10 Hypertension (Acute) I10 Psychosis (Acute) F29 Schizophrenia (Acute) F20.9 - Assessment Assessment: [psychosis schizophrenia hypertension renal failure anemia coronary artery disease history of aneurym renal insufficiency - Plan Plan: psychosis ... continue current treatment schizophrenia hypertension ...will increase isordil to 20mg PO BID. chronic renal insufficiency... Cr 1.2....now normal anemia ... stable hb 11.1 coronary artery disease ..stable history of aneurym chf ... on carvedilol Nutritional Asmnt/Malnutr-PDOC - Dietary Evaluation Malnutrition Findings (Please click <Entered> for more info): Nutritional Asmnt/Malnutrition Start: 05/17/17 17: 49 Text: Status: Complete Freq: Document 05/17/17 17:49 GSUN (Rec: 05/17/17 17:59 GSUN [email or web address]) Nutritional Asmnt/Malnutrition Patient General Information Nutritional Screening Moderate Risk Screening Diagnosis Psychosis, schizophrenia, HTN, renal failure, anemia, CAD Pertinent Medical Hx/Surgical Hx CAD, CHF, HTN, dissecting aortic aneurysm, psychosis, schizophrenia, renal failure Subjective Information 72 year old male from SNF. Spoke to pt in bed. Pt was pleasant. Pt with bottom teeth only, denied difficulties chewing. Avg PO intake 85% of meals since adm, meeting nutritional needs. Pt does not know UBW. CBW 126.6lb via bedscale. Pt appeared overall thin, no severe fat muscle wasting to temporals or shoulders. Pt does not appear underweight. Pt denied nutritional cocnerns at this time. Current Diet Order/ Nutrition Support Cardiac Pertinent Medications MOM, Seroquel Pertinent Labs 05/13: BUN 32H, creatiine 1.6H 05/17: BUN 20 WNL, creaitine 1. 2 WNL Nutritional Hx/Data Height 1.75 m Height (Calculated Centimeters) 175.3 Current Weight (lbs) 57.425 kg Weight (Calculated Kilograms) 57.4 Weight (Calculated Grams) 92990.8 [place] Body Weight 160 GI Symptoms Skin Integrity/Comment: Maxi 19. Skin intact. Current %PO Good (75-100%) Estimated Nutritional Goals Calories/Kcals/Kg IBW 160lb/72.7kg Kcals Calculated 1818-2181kcal (25-30kcla/kg) Protein Calculated 73g (1g/kg) Fluid: ml 1818-2181ml (1ml/kcal) Nutritional Problem 1. Problem Problem No nutritional problem at this time. Intervention/Recommendation Comments 1. Continue with current diet order. Avg PO intake is adequate. 2. Monitor weight. BMI 19.5, near underweight. Expected Outcomes/Goals Expected Outcomes/Goals 1. PO intake continue to meet at least 75% of estimated nutritional needs.
--- NOTE | 2017-05-19 08:07 | General Progress Note ---
Subjective - Review of Systems Service Date: 05/19/17 Subjective: awake, alert, afebrile. no new changes. Objective - Results Result Diagrams: 05/13/17 07:09 05/17/17 06:25 Recent Labs: Laboratory Last Values WBC 5.2 Th/cmm (4.8-10.8) 05/13/17 07:09 RBC 3.65 Mil/cmm (3.80-5.80) L 05/13/17 07:09 Hgb 11.1 gm/dL (12.6-17.4) L 05/13/17 07:09 Hct 32.2 % (39.0-49.0) L 05/13/17 07:09 MCV 88.4 fl (80-99) 05/13/17 07:09 MCH 30.4 pg (27.0-31.0) 05/13/17 07:09 MCHC Differential 34.4 pg (28.0-36.0) 05/13/17 07:09 RDW 14.0 % (11.5-20.0) 05/13/17 07:09 Plt Count 178 Th/cmm (150-400) 05/13/17 07:09 MPV 8.0 fl 05/13/17 07:09 Band Neutrophils % 1 % (0-10) 05/13/17 07:09 Neutrophils (Manual) 61 % (40-80) 05/13/17 07:09 Lymphocytes 22 % (20-50) 05/13/17 07:09 Monocytes 9 % (2-10) 05/13/17 07:09 Eosinophils 7 % (0-5) H 05/13/17 07:09 Platelet Estimate ADEQUATE (NORMAL) 05/13/17 07:09 Platelet Morphology NORMAL (NORMAL) 05/13/17 07:09 RBC Morph Micro Appear NORMAL (NORMAL) 05/13/17 07:09 Sodium 141 mEq/L (136-145) 05/17/17 06:25 Potassium 3.6 mEq/L (3.5-5.1) 05/17/17 06:25 Chloride 107 mEq/L (98-107) 05/17/17 06:25 Carbon Dioxide 31.8 mEq/L (21.0-31.0) H 05/17/17 06:25 Anion Gap 5.8 (7.0-16.0) L 05/17/17 06:25 BUN 20 mg/dL (7-25) 05/17/17 06:25 Creatinine 1.2 mg/dL (0.7-1.3) 05/17/17 06:25 Est GFR ( Amer) > 60.0 ml/min (>90) 05/17/17 06:25 Est GFR (Non-Af Amer) > 60.0 ml/min 05/17/17 06:25 BUN/Creatinine Ratio 16.7 05/17/17 06:25 Glucose 90 mg/dL (70-105) 05/17/17 06:25 Calcium 10.8 mg/dL (8.6-10.3) H 05/17/17 06:25 Total Bilirubin 0.7 mg/dL (0.3-1.0) 05/13/17 07:09 AST 18 U/L (13-39) 05/13/17 07:09 ALT 9 U/L (7-52) 05/13/17 07:09 Alkaline Phosphatase 59 U/L (34-104) 05/13/17 07:09 Total Protein 6.1 gm/dL (6.0-8.3) 05/13/17 07:09 Albumin 3.2 gm/dL (4.2-5.5) L 05/13/17 07:09 Globulin 2.9 gm/dL 05/13/17 07:09 Albumin/Globulin Ratio 1.1 (1.0-1.8) 05/13/17 07:09 Triglycerides 49 mg/dL (<150) 05/13/17 07:09 Cholesterol 124 mg/dL (<200) 05/13/17 07:09 LDL Cholesterol Direct 75 mg/dL (75-193) 05/13/17 07:09 HDL Cholesterol 40 mg/dL (23-92) 05/13/17 07:09 TSH 1.07 uIU/ml (0.34-5.60) 05/13/17 07:09 RPR NONREACTIVE (NONREACTIVE) 05/13/17 07:09 - Physical Exam Vitals and I&O: Vital Signs Temp 97.5 F 05/19/17 06:52 Pulse 77 05/19/17 06:52 Resp 20 05/19/17 06:52 BP 126/86 05/19/17 06:52 Pulse Ox 95 05/19/17 06:52 Intake & Output 05/18/17 05/19/17 05/19/17 18:59 06:59 18:59 Intake Total 800 120 Balance 800 120 Intake: Oral 800 120 Other: # Voids 4 3 # Bowel Movements 1 Active Medications: Current Medications Acetaminophen (Tylenol) 650 mg PO Q6H PRN PRN Reason: Mild Pain/Headache/T above 101 Stop: 07/11/17 21:07 Al Hydrox/Mg Hydrox/Simethicone (Maalox) 30 ml PO Q6H PRN PRN Reason: Dyspepsia Stop: 07/11/17 21:07 Amlodipine Besylate (Norvasc) 10 mg PO DAILY [facility] Stop: 07/12/17 08:59 Last Admin: 05/18/17 09:56 Dose: 10 mg Hydralazine HCl (Apresoline) 50 mg PO QID [facility] Stop: 07/12/17 08:59 Last Admin: 05/18/17 20:04 Dose: 50 mg Isosorbide Dinitrate (Isordil) 20 mg PO BID [facility] Stop: 07/17/17 08:59 Last Admin: 05/18/17 18:11 Dose: Not Given Lorazepam (Ativan) 0.5 mg PO Q6H PRN; Protocol PRN Reason: Anxiety/Agitation Stop: 07/11/17 21:07 Magnesium Hydroxide (Milk Of Magnesia) 30 ml PO HS PRN PRN Reason: Constipation Stop: 07/11/17 21:07 Metoprolol Tartrate (Lopressor) 50 mg PO Q8HR [facility] Stop: 07/12/17 04:59 Last Admin: 05/19/17 06:05 Dose: 50 mg Quetiapine Fumarate (Seroquel) 25 mg PO HS [facility] PRN Reason: Protocol Stop: 07/14/17 09:23 Last Admin: 05/18/17 20:06 Dose: 25 mg Zolpidem Tartrate (Ambien) 5 mg PO HS PRN PRN Reason: Insomnia Stop: 07/11/17 21:07 General: Alert, No acute distress HEENT: Atraumatic, PERRLA, EOMI Neck: Supple Cardiovascular: Regular rate, Normal S1, Normal S2 Abdomen: Bowel sounds, Soft Extremities: no Clubbing, no Cyanosis Assessment/Plan - Problem List Patient Problems: All Active Problems Anemia (Acute) D64.9 Chronic renal failure (Acute) Coronary artery disease (Acute) I25.10 Hypertension (Acute) I10 Psychosis (Acute) F29 Schizophrenia (Acute) F20.9 - Assessment Assessment: [psychosis schizophrenia hypertension renal failure anemia coronary artery disease history of aneurym renal insufficiency - Plan Plan: psychosis ... continue current treatment schizophrenia hypertension ...will increase isordil to 20mg PO BID. chronic renal insufficiency... Cr 1.2....now normal anemia ... stable hb 11.1 coronary artery disease ..stable history of aneurym chf ... on carvedilol Nutritional Asmnt/Malnutr-PDOC - Dietary Evaluation Malnutrition Findings (Please click <Entered> for more info): Nutritional Asmnt/Malnutrition Start: 05/17/17 17: 49 Text: Status: Complete Freq: Document 05/17/17 17:49 GSUN (Rec: 05/17/17 17:59 GSUN [email or web address]) Nutritional Asmnt/Malnutrition Patient General Information Nutritional Screening Moderate Risk Screening Diagnosis Psychosis, schizophrenia, HTN, renal failure, anemia, CAD Pertinent Medical Hx/Surgical Hx CAD, CHF, HTN, dissecting aortic aneurysm, psychosis, schizophrenia, renal failure Subjective Information 72 year old male from SNF. Spoke to pt in bed. Pt was pleasant. Pt with bottom teeth only, denied difficulties chewing. Avg PO intake 85% of meals since adm, meeting nutritional needs. Pt does not know UBW. CBW 126.6lb via bedscale. Pt appeared overall thin, no severe fat muscle wasting to temporals or shoulders. Pt does not appear underweight. Pt denied nutritional cocnerns at this time. Current Diet Order/ Nutrition Support Cardiac Pertinent Medications MOM, Seroquel Pertinent Labs 05/13: BUN 32H, creatiine 1.6H 05/17: BUN 20 WNL, creaitine 1. 2 WNL Nutritional Hx/Data Height 1.75 m Height (Calculated Centimeters) 175.3 Current Weight (lbs) 57.425 kg Weight (Calculated Kilograms) 57.4 Weight (Calculated Grams) 27371.8 [place] Body Weight 160 GI Symptoms Skin Integrity/Comment: Maxi 19. Skin intact. Current %PO Good (75-100%) Estimated Nutritional Goals Calories/Kcals/Kg IBW 160lb/72.7kg Kcals Calculated 1818-2181kcal (25-30kcla/kg) Protein Calculated 73g (1g/kg) Fluid: ml 1818-2181ml (1ml/kcal) Nutritional Problem 1. Problem Problem No nutritional problem at this time. Intervention/Recommendation Comments 1. Continue with current diet order. Avg PO intake is adequate. 2. Monitor weight. BMI 19.5, near underweight. Expected Outcomes/Goals Expected Outcomes/Goals 1. PO intake continue to meet at least 75% of estimated nutritional needs.
--- NOTE | 2017-05-20 05:51 | Progress Notes ---
DATE: 05/19/2017 PSYCHIATRIC PROGRESS NOTE Staff was spoken to. The patient is interviewed. Mood is noted to be less irritable. Affect is appropriate. The patient has been still isolative and withdrawn. Personal hygiene continues to be poor. The patient is still responding to internal stimuli, but denies any command hallucinations. The patient has paranoia. The patient's coping skills are noted to be improving. The patient is currently on 25 mg of the Seroquel and has been able to tolerate the medications. No aggressive behavior is reported today. manager support has been spoken to and with the plan to discharge possibly the patient tomorrow for placement. JOB# [id number]
--- NOTE | 2017-05-20 08:07 | General Progress Note ---
Subjective - Review of Systems Service Date: 05/20/17 Subjective: awake, alert, afebrile. no new changes. Objective - Results Result Diagrams: 05/13/17 07:09 05/17/17 06:25 Recent Labs: Laboratory Last Values WBC 5.2 Th/cmm (4.8-10.8) 05/13/17 07:09 RBC 3.65 Mil/cmm (3.80-5.80) L 05/13/17 07:09 Hgb 11.1 gm/dL (12.6-17.4) L 05/13/17 07:09 Hct 32.2 % (39.0-49.0) L 05/13/17 07:09 MCV 88.4 fl (80-99) 05/13/17 07:09 MCH 30.4 pg (27.0-31.0) 05/13/17 07:09 MCHC Differential 34.4 pg (28.0-36.0) 05/13/17 07:09 RDW 14.0 % (11.5-20.0) 05/13/17 07:09 Plt Count 178 Th/cmm (150-400) 05/13/17 07:09 MPV 8.0 fl 05/13/17 07:09 Band Neutrophils % 1 % (0-10) 05/13/17 07:09 Neutrophils (Manual) 61 % (40-80) 05/13/17 07:09 Lymphocytes 22 % (20-50) 05/13/17 07:09 Monocytes 9 % (2-10) 05/13/17 07:09 Eosinophils 7 % (0-5) H 05/13/17 07:09 Platelet Estimate ADEQUATE (NORMAL) 05/13/17 07:09 Platelet Morphology NORMAL (NORMAL) 05/13/17 07:09 RBC Morph Micro Appear NORMAL (NORMAL) 05/13/17 07:09 Sodium 141 mEq/L (136-145) 05/17/17 06:25 Potassium 3.6 mEq/L (3.5-5.1) 05/17/17 06:25 Chloride 107 mEq/L (98-107) 05/17/17 06:25 Carbon Dioxide 31.8 mEq/L (21.0-31.0) H 05/17/17 06:25 Anion Gap 5.8 (7.0-16.0) L 05/17/17 06:25 BUN 20 mg/dL (7-25) 05/17/17 06:25 Creatinine 1.2 mg/dL (0.7-1.3) 05/17/17 06:25 Est GFR ( Amer) > 60.0 ml/min (>90) 05/17/17 06:25 Est GFR (Non-Af Amer) > 60.0 ml/min 05/17/17 06:25 BUN/Creatinine Ratio 16.7 05/17/17 06:25 Glucose 90 mg/dL (70-105) 05/17/17 06:25 Calcium 10.8 mg/dL (8.6-10.3) H 05/17/17 06:25 Total Bilirubin 0.7 mg/dL (0.3-1.0) 05/13/17 07:09 AST 18 U/L (13-39) 05/13/17 07:09 ALT 9 U/L (7-52) 05/13/17 07:09 Alkaline Phosphatase 59 U/L (34-104) 05/13/17 07:09 Total Protein 6.1 gm/dL (6.0-8.3) 05/13/17 07:09 Albumin 3.2 gm/dL (4.2-5.5) L 05/13/17 07:09 Globulin 2.9 gm/dL 05/13/17 07:09 Albumin/Globulin Ratio 1.1 (1.0-1.8) 05/13/17 07:09 Triglycerides 49 mg/dL (<150) 05/13/17 07:09 Cholesterol 124 mg/dL (<200) 05/13/17 07:09 LDL Cholesterol Direct 75 mg/dL (75-193) 05/13/17 07:09 HDL Cholesterol 40 mg/dL (23-92) 05/13/17 07:09 TSH 1.07 uIU/ml (0.34-5.60) 05/13/17 07:09 RPR NONREACTIVE (NONREACTIVE) 05/13/17 07:09 - Physical Exam Vitals and I&O: Vital Signs Temp 97.9 F 05/19/17 14:00 Pulse 70 05/19/17 20:54 Resp 20 05/19/17 14:00 BP 126/72 05/19/17 20:54 Pulse Ox 96 05/19/17 14:00 Intake & Output 05/19/17 05/20/17 05/20/17 18:59 06:59 18:59 Intake Total 960 Balance 960 Intake: Oral 960 Other: # Voids 3 # Bowel Movements 1 Active Medications: Current Medications Acetaminophen (Tylenol) 650 mg PO Q6H PRN PRN Reason: Mild Pain/Headache/T above 101 Stop: 07/11/17 21:07 Al Hydrox/Mg Hydrox/Simethicone (Maalox) 30 ml PO Q6H PRN PRN Reason: Dyspepsia Stop: 07/11/17 21:07 Amlodipine Besylate (Norvasc) 10 mg PO DAILY [facility] Stop: 07/12/17 08:59 Last Admin: 05/19/17 09:39 Dose: 10 mg Hydralazine HCl (Apresoline) 50 mg PO QID [facility] Stop: 07/12/17 08:59 Last Admin: 05/19/17 20:50 Dose: 50 mg Isosorbide Dinitrate (Isordil) 20 mg PO BID [facility] Stop: 07/17/17 08:59 Last Admin: 05/19/17 17:11 Dose: Not Given Lorazepam (Ativan) 0.5 mg PO Q6H PRN PRN Reason: ANXIETY/AGITATION Stop: 07/18/17 12:22 Magnesium Hydroxide (Milk Of Magnesia) 30 ml PO HS PRN PRN Reason: Constipation Stop: 07/11/17 21:07 Metoprolol Tartrate (Lopressor) 50 mg PO Q8HR [facility] Stop: 07/12/17 04:59 Last Admin: 05/19/17 20:54 Dose: 50 mg Quetiapine Fumarate (Seroquel) 25 mg PO HS [facility] PRN Reason: Protocol Stop: 07/14/17 09:23 Last Admin: 05/19/17 20:54 Dose: 25 mg Zolpidem Tartrate (Ambien) 5 mg PO HS PRN PRN Reason: Insomnia Stop: 07/11/17 21:07 General: Alert, No acute distress HEENT: Atraumatic, PERRLA, EOMI Neck: Supple Cardiovascular: Regular rate, Normal S1, Normal S2 Abdomen: Bowel sounds, Soft Extremities: no Clubbing, no Cyanosis Assessment/Plan - Problem List Patient Problems: All Active Problems Anemia (Acute) D64.9 Chronic renal failure (Acute) Coronary artery disease (Acute) I25.10 Hypertension (Acute) I10 Psychosis (Acute) F29 Schizophrenia (Acute) F20.9 - Assessment Assessment: [psychosis schizophrenia hypertension renal failure anemia coronary artery disease history of aneurym renal insufficiency - Plan Plan: psychosis ... continue current treatment schizophrenia hypertension ...controlled on isordil 20mg PO BID. chronic renal insufficiency... Cr 1.2....now normal anemia ... stable hb 11.1 coronary artery disease ..stable history of aneurym chf ... on carvedilol Nutritional Asmnt/Malnutr-PDOC - Dietary Evaluation Malnutrition Findings (Please click <Entered> for more info): Nutritional Asmnt/Malnutrition Start: 05/17/17 17: 49 Text: Status: Complete Freq: Document 05/17/17 17:49 GSUN (Rec: 05/17/17 17:59 GSUN [email or web address]) Nutritional Asmnt/Malnutrition Patient General Information Nutritional Screening Moderate Risk Screening Diagnosis Psychosis, schizophrenia, HTN, renal failure, anemia, CAD Pertinent Medical Hx/Surgical Hx CAD, CHF, HTN, dissecting aortic aneurysm, psychosis, schizophrenia, renal failure Subjective Information 72 year old male from SNF. Spoke to pt in bed. Pt was pleasant. Pt with bottom teeth only, denied difficulties chewing. Avg PO intake 85% of meals since adm, meeting nutritional needs. Pt does not know UBW. CBW 126.6lb via bedscale. Pt appeared overall thin, no severe fat muscle wasting to temporals or shoulders. Pt does not appear underweight. Pt denied nutritional cocnerns at this time. Current Diet Order/ Nutrition Support Cardiac Pertinent Medications MOM, Seroquel Pertinent Labs 05/13: BUN 32H, creatiine 1.6H 05/17: BUN 20 WNL, creaitine 1. 2 WNL Nutritional Hx/Data Height 1.75 m Height (Calculated Centimeters) 175.3 Current Weight (lbs) 57.425 kg Weight (Calculated Kilograms) 57.4 Weight (Calculated Grams) 86130.8 [place] Body Weight 160 GI Symptoms Skin Integrity/Comment: Maxi 19. Skin intact. Current %PO Good (75-100%) Estimated Nutritional Goals Calories/Kcals/Kg IBW 160lb/72.7kg Kcals Calculated 1818-2181kcal (25-30kcla/kg) Protein Calculated 73g (1g/kg) Fluid: ml 1818-2181ml (1ml/kcal) Nutritional Problem 1. Problem Problem No nutritional problem at this time. Intervention/Recommendation Comments 1. Continue with current diet order. Avg PO intake is adequate. 2. Monitor weight. BMI 19.5, near underweight. Expected Outcomes/Goals Expected Outcomes/Goals 1. PO intake continue to meet at least 75% of estimated nutritional needs.
--- NOTE | 2017-05-21 06:46 | General Progress Note ---
Subjective - Review of Systems Service Date: 05/21/17 Subjective: awake, alert, afebrile. no new changes. Objective - Results Result Diagrams: 05/13/17 07:09 05/17/17 06:25 Recent Labs: Laboratory Last Values WBC 5.2 Th/cmm (4.8-10.8) 05/13/17 07:09 RBC 3.65 Mil/cmm (3.80-5.80) L 05/13/17 07:09 Hgb 11.1 gm/dL (12.6-17.4) L 05/13/17 07:09 Hct 32.2 % (39.0-49.0) L 05/13/17 07:09 MCV 88.4 fl (80-99) 05/13/17 07:09 MCH 30.4 pg (27.0-31.0) 05/13/17 07:09 MCHC Differential 34.4 pg (28.0-36.0) 05/13/17 07:09 RDW 14.0 % (11.5-20.0) 05/13/17 07:09 Plt Count 178 Th/cmm (150-400) 05/13/17 07:09 MPV 8.0 fl 05/13/17 07:09 Band Neutrophils % 1 % (0-10) 05/13/17 07:09 Neutrophils (Manual) 61 % (40-80) 05/13/17 07:09 Lymphocytes 22 % (20-50) 05/13/17 07:09 Monocytes 9 % (2-10) 05/13/17 07:09 Eosinophils 7 % (0-5) H 05/13/17 07:09 Platelet Estimate ADEQUATE (NORMAL) 05/13/17 07:09 Platelet Morphology NORMAL (NORMAL) 05/13/17 07:09 RBC Morph Micro Appear NORMAL (NORMAL) 05/13/17 07:09 Sodium 141 mEq/L (136-145) 05/17/17 06:25 Potassium 3.6 mEq/L (3.5-5.1) 05/17/17 06:25 Chloride 107 mEq/L (98-107) 05/17/17 06:25 Carbon Dioxide 31.8 mEq/L (21.0-31.0) H 05/17/17 06:25 Anion Gap 5.8 (7.0-16.0) L 05/17/17 06:25 BUN 20 mg/dL (7-25) 05/17/17 06:25 Creatinine 1.2 mg/dL (0.7-1.3) 05/17/17 06:25 Est GFR ( Amer) > 60.0 ml/min (>90) 05/17/17 06:25 Est GFR (Non-Af Amer) > 60.0 ml/min 05/17/17 06:25 BUN/Creatinine Ratio 16.7 05/17/17 06:25 Glucose 90 mg/dL (70-105) 05/17/17 06:25 Calcium 10.8 mg/dL (8.6-10.3) H 05/17/17 06:25 Total Bilirubin 0.7 mg/dL (0.3-1.0) 05/13/17 07:09 AST 18 U/L (13-39) 05/13/17 07:09 ALT 9 U/L (7-52) 05/13/17 07:09 Alkaline Phosphatase 59 U/L (34-104) 05/13/17 07:09 Total Protein 6.1 gm/dL (6.0-8.3) 05/13/17 07:09 Albumin 3.2 gm/dL (4.2-5.5) L 05/13/17 07:09 Globulin 2.9 gm/dL 05/13/17 07:09 Albumin/Globulin Ratio 1.1 (1.0-1.8) 05/13/17 07:09 Triglycerides 49 mg/dL (<150) 05/13/17 07:09 Cholesterol 124 mg/dL (<200) 05/13/17 07:09 LDL Cholesterol Direct 75 mg/dL (75-193) 05/13/17 07:09 HDL Cholesterol 40 mg/dL (23-92) 05/13/17 07:09 TSH 1.07 uIU/ml (0.34-5.60) 05/13/17 07:09 RPR NONREACTIVE (NONREACTIVE) 05/13/17 07:09 - Physical Exam Vitals and I&O: Vital Signs Temp 98 F 05/20/17 20:35 Pulse 78 05/20/17 21:20 Resp 20 05/20/17 20:35 BP 132/76 05/20/17 21:20 Pulse Ox 98 05/20/17 20:35 Intake & Output 05/20/17 05/20/17 05/21/17 06:59 18:59 06:59 Intake Total 950 240 Balance 950 240 Intake: Oral 950 240 Other: # Voids 4 1 # Bowel Movements 1 Active Medications: Current Medications Acetaminophen (Tylenol) 650 mg PO Q6H PRN PRN Reason: Mild Pain/Headache/T above 101 Stop: 07/11/17 21:07 Al Hydrox/Mg Hydrox/Simethicone (Maalox) 30 ml PO Q6H PRN PRN Reason: Dyspepsia Stop: 07/11/17 21:07 Amlodipine Besylate (Norvasc) 10 mg PO DAILY [facility] Stop: 07/12/17 08:59 Last Admin: 05/20/17 09:31 Dose: 10 mg Hydralazine HCl (Apresoline) 50 mg PO QID [facility] Stop: 07/12/17 08:59 Last Admin: 05/20/17 21:19 Dose: 50 mg Isosorbide Dinitrate (Isordil) 20 mg PO BID [facility] Stop: 07/17/17 08:59 Last Admin: 05/20/17 18:35 Dose: Not Given Lorazepam (Ativan) 0.5 mg PO Q6H PRN PRN Reason: ANXIETY/AGITATION Stop: 07/18/17 12:22 Magnesium Hydroxide (Milk Of Magnesia) 30 ml PO HS PRN PRN Reason: Constipation Stop: 07/11/17 21:07 Metoprolol Tartrate (Lopressor) 50 mg PO TID [facility] Stop: 07/19/17 13:59 Last Admin: 05/20/17 21:20 Dose: 50 mg Quetiapine Fumarate (Seroquel) 25 mg PO HS [facility] PRN Reason: Protocol Stop: 07/14/17 09:23 Last Admin: 05/20/17 21:20 Dose: 25 mg Zolpidem Tartrate (Ambien) 5 mg PO HS PRN PRN Reason: Insomnia Stop: 07/11/17 21:07 General: Alert, No acute distress HEENT: Atraumatic, PERRLA, EOMI Neck: Supple Cardiovascular: Regular rate, Normal S1, Normal S2 Abdomen: Bowel sounds, Soft Extremities: no Clubbing, no Cyanosis Assessment/Plan - Problem List Patient Problems: All Active Problems Anemia (Acute) D64.9 Chronic renal failure (Acute) Coronary artery disease (Acute) I25.10 Hypertension (Acute) I10 Psychosis (Acute) F29 Schizophrenia (Acute) F20.9 - Assessment Assessment: [psychosis schizophrenia hypertension renal failure anemia coronary artery disease history of aneurym renal insufficiency - Plan Plan: psychosis ... continue current treatment schizophrenia hypertension ...controlled on isordil 20mg PO BID. chronic renal insufficiency... Cr 1.2....now normal anemia ... stable hb 11.1 coronary artery disease ..stable history of aneurym chf ... on carvedilol Nutritional Asmnt/Malnutr-PDOC - Dietary Evaluation Malnutrition Findings (Please click <Entered> for more info): Nutritional Asmnt/Malnutrition Start: 05/17/17 17: 49 Text: Status: Complete Freq: Document 05/17/17 17:49 GSUN (Rec: 05/17/17 17:59 GSUN [email or web address]) Nutritional Asmnt/Malnutrition Patient General Information Nutritional Screening Moderate Risk Screening Diagnosis Psychosis, schizophrenia, HTN, renal failure, anemia, CAD Pertinent Medical Hx/Surgical Hx CAD, CHF, HTN, dissecting aortic aneurysm, psychosis, schizophrenia, renal failure Subjective Information 72 year old male from SNF. Spoke to pt in bed. Pt was pleasant. Pt with bottom teeth only, denied difficulties chewing. Avg PO intake 85% of meals since adm, meeting nutritional needs. Pt does not know UBW. CBW 126.6lb via bedscale. Pt appeared overall thin, no severe fat muscle wasting to temporals or shoulders. Pt does not appear underweight. Pt denied nutritional cocnerns at this time. Current Diet Order/ Nutrition Support Cardiac Pertinent Medications MOM, Seroquel Pertinent Labs 05/13: BUN 32H, creatiine 1.6H 05/17: BUN 20 WNL, creaitine 1. 2 WNL Nutritional Hx/Data Height 1.75 m Height (Calculated Centimeters) 175.3 Current Weight (lbs) 57.425 kg Weight (Calculated Kilograms) 57.4 Weight (Calculated Grams) 54327.8 [place] Body Weight 160 GI Symptoms Skin Integrity/Comment: Maxi 19. Skin intact. Current %PO Good (75-100%) Estimated Nutritional Goals Calories/Kcals/Kg IBW 160lb/72.7kg Kcals Calculated 1818-2181kcal (25-30kcla/kg) Protein Calculated 73g (1g/kg) Fluid: ml 1818-2181ml (1ml/kcal) Nutritional Problem 1. Problem Problem No nutritional problem at this time. Intervention/Recommendation Comments 1. Continue with current diet order. Avg PO intake is adequate. 2. Monitor weight. BMI 19.5, near underweight. Expected Outcomes/Goals Expected Outcomes/Goals 1. PO intake continue to meet at least 75% of estimated nutritional needs.
--- NOTE | 2017-05-21 07:40 | Progress Notes ---
DATE: 05/20/2017 PSYCHIATRIC PROGRESS NOTE SUBJECTIVE: Staff was spoken to. The patient is interviewed. Mood is noted to be anxious and irritable today. Insight and judgment noted to be improving. Impulse control is noted to be fair. The patient has paranoid delusions, but denies any commanding hallucinations. No side effects to the medications are noted. Coping skills, however, are noted to be poor. The patient is not able to care for self. The patient needs close monitoring and redirection. ASSESSMENT: The patient is still psychotic. PLAN: To continue the patient with the supportive therapy. I encouraged the patient to verbalize the concerns rather than to act out. JOB# [id number]
--- NOTE | 2017-05-22 07:30 | General Progress Note ---
Subjective - Review of Systems Service Date: 05/22/17 Subjective: awake, alert, afebrile. no new changes. Objective - Results Result Diagrams: 05/13/17 07:09 05/17/17 06:25 Recent Labs: Laboratory Last Values WBC 5.2 Th/cmm (4.8-10.8) 05/13/17 07:09 RBC 3.65 Mil/cmm (3.80-5.80) L 05/13/17 07:09 Hgb 11.1 gm/dL (12.6-17.4) L 05/13/17 07:09 Hct 32.2 % (39.0-49.0) L 05/13/17 07:09 MCV 88.4 fl (80-99) 05/13/17 07:09 MCH 30.4 pg (27.0-31.0) 05/13/17 07:09 MCHC Differential 34.4 pg (28.0-36.0) 05/13/17 07:09 RDW 14.0 % (11.5-20.0) 05/13/17 07:09 Plt Count 178 Th/cmm (150-400) 05/13/17 07:09 MPV 8.0 fl 05/13/17 07:09 Band Neutrophils % 1 % (0-10) 05/13/17 07:09 Neutrophils (Manual) 61 % (40-80) 05/13/17 07:09 Lymphocytes 22 % (20-50) 05/13/17 07:09 Monocytes 9 % (2-10) 05/13/17 07:09 Eosinophils 7 % (0-5) H 05/13/17 07:09 Platelet Estimate ADEQUATE (NORMAL) 05/13/17 07:09 Platelet Morphology NORMAL (NORMAL) 05/13/17 07:09 RBC Morph Micro Appear NORMAL (NORMAL) 05/13/17 07:09 Sodium 141 mEq/L (136-145) 05/17/17 06:25 Potassium 3.6 mEq/L (3.5-5.1) 05/17/17 06:25 Chloride 107 mEq/L (98-107) 05/17/17 06:25 Carbon Dioxide 31.8 mEq/L (21.0-31.0) H 05/17/17 06:25 Anion Gap 5.8 (7.0-16.0) L 05/17/17 06:25 BUN 20 mg/dL (7-25) 05/17/17 06:25 Creatinine 1.2 mg/dL (0.7-1.3) 05/17/17 06:25 Est GFR ( Amer) > 60.0 ml/min (>90) 05/17/17 06:25 Est GFR (Non-Af Amer) > 60.0 ml/min 05/17/17 06:25 BUN/Creatinine Ratio 16.7 05/17/17 06:25 Glucose 90 mg/dL (70-105) 05/17/17 06:25 Calcium 10.8 mg/dL (8.6-10.3) H 05/17/17 06:25 Total Bilirubin 0.7 mg/dL (0.3-1.0) 05/13/17 07:09 AST 18 U/L (13-39) 05/13/17 07:09 ALT 9 U/L (7-52) 05/13/17 07:09 Alkaline Phosphatase 59 U/L (34-104) 05/13/17 07:09 Total Protein 6.1 gm/dL (6.0-8.3) 05/13/17 07:09 Albumin 3.2 gm/dL (4.2-5.5) L 05/13/17 07:09 Globulin 2.9 gm/dL 05/13/17 07:09 Albumin/Globulin Ratio 1.1 (1.0-1.8) 05/13/17 07:09 Triglycerides 49 mg/dL (<150) 05/13/17 07:09 Cholesterol 124 mg/dL (<200) 05/13/17 07:09 LDL Cholesterol Direct 75 mg/dL (75-193) 05/13/17 07:09 HDL Cholesterol 40 mg/dL (23-92) 05/13/17 07:09 TSH 1.07 uIU/ml (0.34-5.60) 05/13/17 07:09 RPR NONREACTIVE (NONREACTIVE) 05/13/17 07:09 - Physical Exam Vitals and I&O: Vital Signs Temp 98.4 F 05/22/17 06:36 Pulse 72 05/22/17 06:36 Resp 20 05/22/17 06:36 BP 130/83 05/22/17 06:36 Pulse Ox 96 05/22/17 06:36 Intake & Output 05/21/17 05/22/17 05/22/17 18:59 06:59 18:59 Intake Total 2400 120 Balance 2400 120 Intake: Oral 2400 120 Other: # Voids 4 3 # Bowel Movements 0 Active Medications: Current Medications Acetaminophen (Tylenol) 650 mg PO Q6H PRN PRN Reason: Mild Pain/Headache/T above 101 Stop: 07/11/17 21:07 Al Hydrox/Mg Hydrox/Simethicone (Maalox) 30 ml PO Q6H PRN PRN Reason: Dyspepsia Stop: 07/11/17 21:07 Amlodipine Besylate (Norvasc) 10 mg PO DAILY [facility] Stop: 07/12/17 08:59 Last Admin: 05/21/17 08:27 Dose: 10 mg Hydralazine HCl (Apresoline) 50 mg PO QID [facility] Stop: 07/12/17 08:59 Last Admin: 05/21/17 21:13 Dose: 50 mg Isosorbide Dinitrate (Isordil) 20 mg PO BID [facility] Stop: 07/17/17 08:59 Last Admin: 05/21/17 16:46 Dose: 20 mg Lorazepam (Ativan) 0.5 mg PO Q6H PRN PRN Reason: ANXIETY/AGITATION Stop: 07/18/17 12:22 Magnesium Hydroxide (Milk Of Magnesia) 30 ml PO HS PRN PRN Reason: Constipation Stop: 07/11/17 21:07 Metoprolol Tartrate (Lopressor) 50 mg PO TID [facility] Stop: 07/19/17 13:59 Last Admin: 05/21/17 21:14 Dose: 50 mg Quetiapine Fumarate (Seroquel) 25 mg PO HS [facility] PRN Reason: Protocol Stop: 07/14/17 09:23 Last Admin: 05/21/17 21:13 Dose: 25 mg Zolpidem Tartrate (Ambien) 5 mg PO HS PRN PRN Reason: Insomnia Stop: 07/11/17 21:07 General: Alert, No acute distress HEENT: Atraumatic, PERRLA, EOMI Neck: Supple Cardiovascular: Regular rate, Normal S1, Normal S2 Abdomen: Bowel sounds, Soft Extremities: no Clubbing, no Cyanosis Assessment/Plan - Problem List Patient Problems: All Active Problems Anemia (Acute) D64.9 Chronic renal failure (Acute) Coronary artery disease (Acute) I25.10 Hypertension (Acute) I10 Psychosis (Acute) F29 Schizophrenia (Acute) F20.9 - Assessment Assessment: [psychosis schizophrenia hypertension renal failure anemia coronary artery disease history of aneurym renal insufficiency - Plan Plan: psychosis ... continue current treatment schizophrenia hypertension ...controlled on isordil 20mg PO BID. chronic renal insufficiency... Cr 1.2....now normal anemia ... stable hb 11.1 coronary artery disease ..stable history of aneurym chf ... on carvedilol Nutritional Asmnt/Malnutr-PDOC - Dietary Evaluation Malnutrition Findings (Please click <Entered> for more info): Nutritional Asmnt/Malnutrition Start: 05/17/17 17: 49 Text: Status: Complete Freq: Document 05/17/17 17:49 GSUN (Rec: 05/17/17 17:59 GSUN [email or web address]) Nutritional Asmnt/Malnutrition Patient General Information Nutritional Screening Moderate Risk Screening Diagnosis Psychosis, schizophrenia, HTN, renal failure, anemia, CAD Pertinent Medical Hx/Surgical Hx CAD, CHF, HTN, dissecting aortic aneurysm, psychosis, schizophrenia, renal failure Subjective Information 72 year old male from SNF. Spoke to pt in bed. Pt was pleasant. Pt with bottom teeth only, denied difficulties chewing. Avg PO intake 85% of meals since adm, meeting nutritional needs. Pt does not know UBW. CBW 126.6lb via bedscale. Pt appeared overall thin, no severe fat muscle wasting to temporals or shoulders. Pt does not appear underweight. Pt denied nutritional cocnerns at this time. Current Diet Order/ Nutrition Support Cardiac Pertinent Medications MOM, Seroquel Pertinent Labs 05/13: BUN 32H, creatiine 1.6H 05/17: BUN 20 WNL, creaitine 1. 2 WNL Nutritional Hx/Data Height 1.75 m Height (Calculated Centimeters) 175.3 Current Weight (lbs) 57.425 kg Weight (Calculated Kilograms) 57.4 Weight (Calculated Grams) 91550.8 [place] Body Weight 160 GI Symptoms Skin Integrity/Comment: Maxi 19. Skin intact. Current %PO Good (75-100%) Estimated Nutritional Goals Calories/Kcals/Kg IBW 160lb/72.7kg Kcals Calculated 1818-2181kcal (25-30kcla/kg) Protein Calculated 73g (1g/kg) Fluid: ml 1818-2181ml (1ml/kcal) Nutritional Problem 1. Problem Problem No nutritional problem at this time. Intervention/Recommendation Comments 1. Continue with current diet order. Avg PO intake is adequate. 2. Monitor weight. BMI 19.5, near underweight. Expected Outcomes/Goals Expected Outcomes/Goals 1. PO intake continue to meet at least 75% of estimated nutritional needs.
--- NOTE | 2017-05-23 02:36 | Progress Notes ---
DATE: 05/21/2017 PSYCHIATRIC PROGRESS NOTE SUBJECTIVE: Staff was spoken to. The patient is interviewed. Mood is noted to be irritable. Affect is constricted. Insight and judgment at this time are noted to be still impaired. Impulse control seems to be limited. The patient has, however, been refusing to get to the bed, participating getting in the groups, paranoid delusions are noted. No command hallucinations are noted. The patient is on Seroquel and has been able to tolerate the medication. ASSESSMENT: The patient's psychosis is resolving. PLAN: To continue the patient with the current medications. I encouraged the patient to verbalize the concerns rather than to act out. JOB# [id number]
--- NOTE | 2017-05-23 07:10 | Progress Notes ---
DATE: 05/22/2017 SUBJECTIVE: Staff was spoken to. The patient is interviewed. Mood is noted to be less irritable. Affect is appropriate. Insight and judgment at this time are noted to be improving. Impulse control seems to be improving. No side effects to the medications are noted. The patient has been able to verbalize the concerns. The patient has paranoia, but denies any command hallucinations. ASSESSMENT: The patient's psychosis is resolving. PLAN: To continue the patient with supportive therapy. I encouraged the patient to verbalize the concerns and await for placement. JOB# [id number]
--- NOTE | 2017-05-23 08:08 | General Progress Note ---
Subjective - Review of Systems Service Date: 05/23/17 Subjective: awake, alert, afebrile. no new changes. mood appears to be improving Objective - Results Result Diagrams: 05/13/17 07:09 05/17/17 06:25 Recent Labs: Laboratory Last Values WBC 5.2 Th/cmm (4.8-10.8) 05/13/17 07:09 RBC 3.65 Mil/cmm (3.80-5.80) L 05/13/17 07:09 Hgb 11.1 gm/dL (12.6-17.4) L 05/13/17 07:09 Hct 32.2 % (39.0-49.0) L 05/13/17 07:09 MCV 88.4 fl (80-99) 05/13/17 07:09 MCH 30.4 pg (27.0-31.0) 05/13/17 07:09 MCHC Differential 34.4 pg (28.0-36.0) 05/13/17 07:09 RDW 14.0 % (11.5-20.0) 05/13/17 07:09 Plt Count 178 Th/cmm (150-400) 05/13/17 07:09 MPV 8.0 fl 05/13/17 07:09 Band Neutrophils % 1 % (0-10) 05/13/17 07:09 Neutrophils (Manual) 61 % (40-80) 05/13/17 07:09 Lymphocytes 22 % (20-50) 05/13/17 07:09 Monocytes 9 % (2-10) 05/13/17 07:09 Eosinophils 7 % (0-5) H 05/13/17 07:09 Platelet Estimate ADEQUATE (NORMAL) 05/13/17 07:09 Platelet Morphology NORMAL (NORMAL) 05/13/17 07:09 RBC Morph Micro Appear NORMAL (NORMAL) 05/13/17 07:09 Sodium 141 mEq/L (136-145) 05/17/17 06:25 Potassium 3.6 mEq/L (3.5-5.1) 05/17/17 06:25 Chloride 107 mEq/L (98-107) 05/17/17 06:25 Carbon Dioxide 31.8 mEq/L (21.0-31.0) H 05/17/17 06:25 Anion Gap 5.8 (7.0-16.0) L 05/17/17 06:25 BUN 20 mg/dL (7-25) 05/17/17 06:25 Creatinine 1.2 mg/dL (0.7-1.3) 05/17/17 06:25 Est GFR ( Amer) > 60.0 ml/min (>90) 05/17/17 06:25 Est GFR (Non-Af Amer) > 60.0 ml/min 05/17/17 06:25 BUN/Creatinine Ratio 16.7 05/17/17 06:25 Glucose 90 mg/dL (70-105) 05/17/17 06:25 Calcium 10.8 mg/dL (8.6-10.3) H 05/17/17 06:25 Total Bilirubin 0.7 mg/dL (0.3-1.0) 05/13/17 07:09 AST 18 U/L (13-39) 05/13/17 07:09 ALT 9 U/L (7-52) 05/13/17 07:09 Alkaline Phosphatase 59 U/L (34-104) 05/13/17 07:09 Total Protein 6.1 gm/dL (6.0-8.3) 05/13/17 07:09 Albumin 3.2 gm/dL (4.2-5.5) L 05/13/17 07:09 Globulin 2.9 gm/dL 05/13/17 07:09 Albumin/Globulin Ratio 1.1 (1.0-1.8) 05/13/17 07:09 Triglycerides 49 mg/dL (<150) 05/13/17 07:09 Cholesterol 124 mg/dL (<200) 05/13/17 07:09 LDL Cholesterol Direct 75 mg/dL (75-193) 05/13/17 07:09 HDL Cholesterol 40 mg/dL (23-92) 05/13/17 07:09 TSH 1.07 uIU/ml (0.34-5.60) 05/13/17 07:09 RPR NONREACTIVE (NONREACTIVE) 05/13/17 07:09 - Physical Exam Vitals and I&O: Vital Signs Temp 98.2 F 05/23/17 06:39 Pulse 75 05/23/17 06:39 Resp 20 05/23/17 06:39 BP 133/95 05/23/17 06:39 Pulse Ox 98 05/23/17 06:39 Intake & Output 05/22/17 05/23/17 05/23/17 18:59 06:59 18:59 Intake Total 60 Balance 60 Intake: Oral 60 Other: # Voids 3 # Bowel Movements 0 Active Medications: Current Medications Acetaminophen (Tylenol) 650 mg PO Q6H PRN PRN Reason: Mild Pain/Headache/T above 101 Stop: 07/11/17 21:07 Al Hydrox/Mg Hydrox/Simethicone (Maalox) 30 ml PO Q6H PRN PRN Reason: Dyspepsia Stop: 07/11/17 21:07 Amlodipine Besylate (Norvasc) 10 mg PO DAILY [facility] Stop: 07/12/17 08:59 Last Admin: 05/22/17 09:46 Dose: 10 mg Hydralazine HCl (Apresoline) 50 mg PO QID [facility] Stop: 07/12/17 08:59 Last Admin: 05/22/17 20:23 Dose: 50 mg Isosorbide Dinitrate (Isordil) 20 mg PO BID [facility] Stop: 07/17/17 08:59 Last Admin: 05/22/17 17:33 Dose: Not Given Lorazepam (Ativan) 0.5 mg PO Q6H PRN PRN Reason: ANXIETY/AGITATION Stop: 07/18/17 12:22 Magnesium Hydroxide (Milk Of Magnesia) 30 ml PO HS PRN PRN Reason: Constipation Stop: 07/11/17 21:07 Metoprolol Tartrate (Lopressor) 50 mg PO TID [facility] Stop: 07/19/17 13:59 Last Admin: 05/22/17 20:22 Dose: 50 mg Quetiapine Fumarate (Seroquel) 25 mg PO HS [facility] PRN Reason: Protocol Stop: 07/14/17 09:23 Last Admin: 05/22/17 20:22 Dose: 25 mg Zolpidem Tartrate (Ambien) 5 mg PO HS PRN PRN Reason: Insomnia Stop: 07/11/17 21:07 General: Alert, No acute distress HEENT: Atraumatic, PERRLA, EOMI Neck: Supple Cardiovascular: Regular rate, Normal S1, Normal S2 Abdomen: Bowel sounds, Soft Extremities: no Clubbing, no Cyanosis Assessment/Plan - Problem List Patient Problems: All Active Problems Anemia (Acute) D64.9 Chronic renal failure (Acute) Coronary artery disease (Acute) I25.10 Hypertension (Acute) I10 Psychosis (Acute) F29 Schizophrenia (Acute) F20.9 - Assessment Assessment: [psychosis schizophrenia hypertension renal failure anemia coronary artery disease history of aneurym renal insufficiency - Plan Plan: psychosis ... continue current treatment schizophrenia hypertension ...controlled on isordil 20mg PO BID. chronic renal insufficiency... Cr 1.2....now normal anemia ... stable hb 11.1 coronary artery disease ..stable history of aneurym chf ... on carvedilol Nutritional Asmnt/Malnutr-PDOC - Dietary Evaluation Malnutrition Findings (Please click <Entered> for more info): Nutritional Asmnt/Malnutrition Start: 05/17/17 17: 49 Text: Status: Complete Freq: Document 05/17/17 17:49 GSUN (Rec: 05/17/17 17:59 GSUN [email or web address]) Nutritional Asmnt/Malnutrition Patient General Information Nutritional Screening Moderate Risk Screening Diagnosis Psychosis, schizophrenia, HTN, renal failure, anemia, CAD Pertinent Medical Hx/Surgical Hx CAD, CHF, HTN, dissecting aortic aneurysm, psychosis, schizophrenia, renal failure Subjective Information 72 year old male from SNF. Spoke to pt in bed. Pt was pleasant. Pt with bottom teeth only, denied difficulties chewing. Avg PO intake 85% of meals since adm, meeting nutritional needs. Pt does not know UBW. CBW 126.6lb via bedscale. Pt appeared overall thin, no severe fat muscle wasting to temporals or shoulders. Pt does not appear underweight. Pt denied nutritional cocnerns at this time. Current Diet Order/ Nutrition Support Cardiac Pertinent Medications MOM, Seroquel Pertinent Labs 05/13: BUN 32H, creatiine 1.6H 05/17: BUN 20 WNL, creaitine 1. 2 WNL Nutritional Hx/Data Height 1.75 m Height (Calculated Centimeters) 175.3 Current Weight (lbs) 57.425 kg Weight (Calculated Kilograms) 57.4 Weight (Calculated Grams) 20277.8 [place] Body Weight 160 GI Symptoms Skin Integrity/Comment: Maxi 19. Skin intact. Current %PO Good (75-100%) Estimated Nutritional Goals Calories/Kcals/Kg IBW 160lb/72.7kg Kcals Calculated 1818-2181kcal (25-30kcla/kg) Protein Calculated 73g (1g/kg) Fluid: ml 1818-2181ml (1ml/kcal) Nutritional Problem 1. Problem Problem No nutritional problem at this time. Intervention/Recommendation Comments 1. Continue with current diet order. Avg PO intake is adequate. 2. Monitor weight. BMI 19.5, near underweight. Expected Outcomes/Goals Expected Outcomes/Goals 1. PO intake continue to meet at least 75% of estimated nutritional needs.
--- NOTE | 2017-05-24 00:11 | Progress Notes ---
DATE: 05/23/2017 PSYCHIATRIC PROGRESS NOTE TIME PATIENT SEEN: SUBJECTIVE: Staff was spoken to. The patient is interviewed. Mood is noted to be anxious. Affect is appropriate. The patient denies any command hallucinations. Insight and judgment noted to be improving. Impulse control seems to be fair. No side effects to the medications are noted. The patient has been able to verbalize the concerns rather than to act out. ASSESSMENT: The patient is stabilizing. PLAN: To discharge the patient today for followup on outpatient basis. [facility]# [id number]
== END 2017-05-23 14:31 | DRG 885 ==
LOC: GERO 20:20
DX: F20.0 Paranoid schizophrenia (principal); I50.9 Heart failure, unspecified; D64.9 Anemia, unspecified; I13.0 Hypertensive heart and chronic kidney disease with heart failure and stage 1 through stage 4 chronic kidney disease, or unspecified chronic kidney disease; F29 Unspecified psychosis not due to a substance or known physiological condition; I25.10 Atherosclerotic heart disease of native coronary artery without angina pectoris; I71.9 Aortic aneurysm of unspecified site, without rupture; N18.9 Chronic kidney disease, unspecified; Z79.899 Other long term (current) drug therapy
CPT/HCPCS: 36415-UA; 71010-TC; 80048-TC; 80053-TC; 80061-TC; 84443-TC; 85007-TC; 85027-TC; 86592-TC; 93005; Z7610